=== PATIENT | female | born 1995 | race Caucasian/White ===

== ENCOUNTER 2017-01-17 21:04 | Observation (INO) ==
[2017-01-17] MEDS ORDERED: SODIUM CHLORIDE 0.9% 1,000 ML IV STA ×2 (22:02→22:53)
[2017-01-17] MEDS ORDERED: ONDANSETRON 4 MG/2 ML VIAL IV STA (22:02)
--- NOTE | 2017-01-17 22:18 | Emergency Department Note ---
Zena Ewing Mantricia, am scribing for, and in the presence of, Gaby Knox DO 22:07. IAbilio Debra, DO, personally performed the services described in this documentation, ascribed by Shirley Freitas in my presence, and it is both accurate and complete . Arrival - Arrival Chief Complaint: Upper Respiratory Stated Complaint: nausea/vomitting/chills/cant eat/diarrhea/fatigue ED Nursing Triage Note: patient c/o n/v, diarrhea, chills, weakness, and loss of appetite since 9am this morning. Mode of Arrival: Ambulatory Limitations: No Limitations Source: Patient Time Seen by Provider: 01/17/17 22:01 - History of Present Illness HPI Narrative: Pt is a 21 y/o white female arriving to ED with c/o N/V/D that onset 0900 this morning. Pt states that she is not able to hold anything down and is also experiencing chills. She reports that she cannot even hold down sips of water without vomiting. Her friend has also had similar sxs and they report that they did eat Filipino yesterday. Pt has a PMHx of Type 1 DM and reports that her blood sugar has been fluctuating lately. No other complaints were reported to ED. Onset (ago): hour(s) Consistency: constant Severity: mild Date of Last Menstrual Period: this month Allergies/Adverse Reactions: Allergies Allergy/AdvReac Type Severity Reaction Status Date / Time No Known Allergies Allergy Verified 01/17/17 21:12 Review of System - Review of System 12 point system: reviewed and no additional remarkable complaints except as stated - Review of System Constitutional: Present: chills. Absent: diaphoresis, fever Cardiovascular: Absent: chest pain Gastrointestinal: Present: nausea, vomiting, diarrhea. Absent: abdominal pain Musculoskeletal: Absent: arm pain, back pain, leg pain, neck pain Medical,Surgical,& Family Hx - Medical History Endocrine: History of: Diabetes Mellitus (IDDM) - Social History Smoking Status: Never smoker Frequency of Alcohol Use: None Type of Drug Use: None Exam Vital Signs: Vital Signs Temperature 98.6 F 01/18/17 08:00 Pulse Rate 107 H 01/18/17 08:00 Respiratory Rate 19 01/18/17 08:00 Blood Pressure 134/69 01/18/17 08:00 O2 Sat by Pulse Oximetry 97 01/18/17 08:00 - General General appearance: alert, in no apparent distress, obese - Head Head exam: Present: atraumatic, normocephalic, normal inspection - Eye Eye exam: Present: normal appearance, PERRL, EOMI - ENT ENT exam: Present: normal exam, normal oropharynx, mucous membranes dry, TM's normal bilaterally, normal external ear exam - Neck Neck exam: Present: normal inspection, full ROM, trachea midline. Absent: tenderness - Chest Chest inspection: Present: normal inspection, symmetric chest wall rise. Absent : tenderness - Respiratory Respiratory exam: Present: normal lung sounds bilaterally - Cardiovascular Cardiovascular exam: Present: normal rhythm, tachycardia, normal heart sounds - Abdominal Exam Abdominal exam: Present: soft, normal bowel sounds. Absent: distention, tenderness, guarding, rebound - Extremities Exam Extremities exam: Present: normal inspection, full ROM, normal capillary refill. Absent: tenderness, pedal edema - Back Exam Back exam: Present: normal inspection, full ROM. Absent: tenderness - Neurological Exam Neurological exam: Present: alert, oriented X3, CN II-XII intact, normal gait, reflexes normal - Psychiatric Psychiatric exam: Present: normal affect, normal mood - Skin Skin exam: Present: warm, dry, intact, normal color Course Course Narrative: pt feels somewhat better after 2 liters fluids. and zofran, still somewhat nauseated. and right sided flank pain. will admit to hospitalist and await ct results . Results - Labs CBC & BMP: 01/18/17 04:48 01/18/17 04:48 Lab Results: I have reviewed the patients labs - Diagnostic Findings Procedure: CT Abdomen and Pelvis: report reviewed by me (No ureteral calculus. Questionable very early acute appendicitis versus normal variant. Questionable mesentric adenitis versus normal variant. ) Disposition Clinical Impression: Nausea and vomiting Case discussed with: patient, patient's family Disposition: Still a Patient Condition: Stable Time of Disposition: 00:01
[2017-01-17 22:22] LABS: Basophils # 0.1 10*3/uL (0.0-0.2); Basophils % 0.3 % (0.0-0.8); Eosinophils % 0.1 % (0.00-10.9); Hematocrit 48.4 VOL% (35.7-47.0); Hemoglobin 17.2 GM/DL (12.0-16.0); Immature Granulocytes % 0.5 %; Immature Granulocytes Absolute 0.09 #; Lymphocytes # 0.6 10*3/uL (1.4-4.0); Mean Corpuscular HGB Conc 35.5 GM/DL (32-36); Mean Corpuscular Hemoglobin 31 PG (27-34); Mean Corpuscular Volume 87.8 FL (87-102); Mean Platelet Volume 10.7 FL (9.6-12.0); Monocytes # 0.5 10*3/uL (0.11-0.8); Monocytes % 2.4 % (1.7-12.7); Neutrophils # 18.1 10*3/uL (1.4-7.4); Neutrophils % 93.7 % (38.7-73.9); Platelet Count 396 T/CUMM (130-400); Red Blood Count 5.51 MC/CUMM (3.8-5.5); Red Cell Distribution Width 11.9 % (9.3-17.3); White Blood Count 19.3 T/CUMM (4-12)
[2017-01-17] MEDS ORDERED: ONDANSETRON 4 MG/2 ML VIAL ONE (22:24)
[2017-01-17 22:27] LABS: Apearance,Urine CLEAR (Clear); Bacteria,Urine Occasional /HPF (Few); Bilirubin,Urine Negative (Negative); Blood, Urine Negative (Negative); Glucose,Urine (UA) >=500 mg/dL (Negative); Ketones,Urine 80 mg/dL (Negative); Nitrite,Urine Negative (Negative); Protein,Urine 30 MG/DL; RBC,Urine 1 /HPF (0-4); Squamous Epithelial Cell,Urine Occasional /HPF (0-10); Urine Color Yellow (Yellow); Urine Specific Gravity 1.037 (1.001-1.035); Urine Urobilinogen < 2.0 EU/DL (0.2-1.0); WBC,Urine 1 /HPF (0-6)
[2017-01-17 22:42] LABS: Albumin 3.8 G/DL (3.4-5.0); Bilirubin,Total 0.5 MG/DL (0.2-1.0); Calcium 8.9 MG/DL (8.5-10.1); Osmolality,Calculated 280.1 MOS/KG (273-304); Potassium 4.3 MMOL/L (3.5-5.1); Total Protein 7.8 G/DL (6.4-8.3)
[2017-01-17] MEDS ORDERED: INSULIN REGULAR 100 UNIT/ML IV STA (22:54)
[2017-01-17 23:08] LABS: Band Neutrophils 2 % (0-10); Lymphocytes 1 % (20-55); Segmented Neutrophils 96 % (50-85)
[2017-01-17 23:09] LABS: Platelet Estimate Normal; Total Cells Counted 100
[2017-01-17] MEDS ORDERED: INSULIN REGULAR 100 UNIT/ML ONE (23:12)
[2017-01-18] MEDS ORDERED: ONDANSETRON 4 MG/2 ML VIAL IV PRN (00:13)
[2017-01-18] MEDS ORDERED: ZALEPLON 5 MG CAPSULE PO PRN (00:13)
[2017-01-18] MEDS ORDERED: PROMETHAZINE 25 MG/1 ML VIAL IM PRN (00:13)
[2017-01-18] MEDS ORDERED: ACETAMINOPHEN 325 MG TABLET PO PRN (00:13)
[2017-01-18] MEDS ORDERED: DEXTROSE 50% 25 GM/50 ML VIAL IV PRN (00:16)
[2017-01-18] MEDS ORDERED: GLUCAGON 1 MG VIAL IM PRN (00:16)
--- NOTE | 2017-01-18 00:24 | Hospitalist History & Physical ---
Assessment and Plan - Time spent with patient Time spent with patient: Less than 30 minutes (1) Nausea and vomiting Status: Acute Assessment and plan: Admit to the hospitalist service as observation. Hydrate with normal saline at 125 mL's an hour. Antiemetics as needed for nausea. Will obtain stool sample for WBCs, ova and parasites, and culture. Current Visit: Yes Qualifiers: Vomiting type: unspecified (2) Leukocytosis, unspecified Status: Acute Assessment and plan: Likely reactive due to episode of emesis and elevated glucose. Will obtain stool cultures along with hydrating and recheck labs in a.m. Current Visit: Yes Qualifiers: Leukocytosis type: unspecified Qualified Code(s): D72.829 - Elevated white blood cell count, unspecified (3) Diabetes type I Status: Acute Assessment and plan: Patient reports she has been controlled fairly well with insulin pump. Accu- Cheks before meals and at bedtime allow patient to bolus himself and continue basal insulin from pump. Obtain a hemoglobin A1c in a.m. Current Visit: Yes Qualifiers: Diabetes mellitus complication status: without complication Qualified Code( s): E10.9 - Type 1 diabetes mellitus without complications History of Present Illness Chief complaint: Nausea, vomiting, and diarrhea History of present illness: Ms. Grullon is a 21 year old female with a past medical history of type 1 diabetes who uses an insulin pump presents to the ED today with chief complaint of nausea, vomiting, and diarrhea. She reports the symptoms began approximately 9 AM this morning. Initially thinks she felt the symptoms were related to food poisoning due to her and her significant other having ate [place]ian yesterday he also having the same symptoms. She indicates his symptoms only lasted for approximately 4-5 hours and resolved hers has continued all day. She indicates her initial blood sugar this morning was 97 and throughout the day it has increased to 97. She indicated she did not want to give herself her home insulin dose due to not being able to eat food. She is unable to hold anything down including water with the last episode of diarrhea approximately 4 PM and last episode of emesis prior to presenting to the ED. She denies the possibility of being . No changes in urinary habits. She does report she has a mild lower back pain extending from flank to flank. Initial workup in the ED included a WBC of 19.3, sodium 135, bicarb 18, anion gap 18.3, glucose 275, lipase 71, UA with glucose greater than [address] of the abdomen is pending at this time of interview patient did receive 2 liter normal saline bolus and combination of 6 units of IV regular insulin. Patient will be admitted as observation to the hospital service for further evaluation. Home Medications Medication Instructions Recorded Confirmed Type Insulin Aspart [Novolog] 100 unit SQ DIRECTED 01/17/17 01/17/17 History Allergies Allergy/AdvReac Type Severity Reaction Status Date / Time No Known Allergies Allergy Verified 01/17/17 21:12 Medical,Surgical,& Family Hx - Medical History Endocrine: History of: Diabetes Mellitus (IDDM) - Family History Family History: Reports;: Family Diabetes, Family Hypertension - Social History Smoking Status: Never smoker Have you smoked in the last 12 months: No Frequency of Alcohol Use: Unknown Type of Drug Use: None Functional capacity: independent ambulation - Constitutional Constitutional: Present: chills - Gastrointestinal Gastrointestinal: Present: diarrhea, nausea, vomiting - Musculoskeletal Musculoskeletal: Present: other (Lower back pain from flank to flank) Exam - Constitutional Vitals: Period Temp Pulse Resp BP Sys/East Pulse Ox Last 24 Hr 98.0 F-98.0 F 122-122 20-20 170-170/105-105 98 General appearance: normal weight, no acute distress - Head Head exam: Present: normal inspection - Eye Pupils: Present: ALESHA - ENT ENT exam: Present: normal exam - Neck Neck exam: Present: normal inspection - Respiratory Respiratory exam: Present: clear to auscultation bilaterally - Cardiovascular Cardiovascular exam: Present: regular rate and rhythm - GI/Abdominal GI/Abdominal exam: Present: normal bowel sounds, tenderness - Extremities Exam Extremities exam: Present: normal inspection - Back Exam Back exam: Present: normal inspection. Absent: CVA tenderness (L), CVA tenderness (R) - Neurological Exam Neurological exam: Present: alert, oriented X3 - Psychiatric Psychiatric exam: Present: normal affect, normal mood - Skin Skin exam: Present: normal color Results - Labs CBC & BMP: 01/17/17 22:13 01/17/17 22:13 Lab Results: I have reviewed the past 24 hour labs - Diagnostic Findings Procedure: CT Abdomen and Pelvis: pending
[2017-01-18] MEDS ORDERED: SODIUM CHLORIDE 0.9% 1,000 ML IV SCH (00:30)
[2017-01-18] MEDS ORDERED: NON-FORMULARY MEDICATION SUBCUT SCH (00:30)
[2017-01-18] MEDS: PIPERACILLIN/TAZOBACTAM 3,375 MG in SODIUM CHLORIDE 0.9% 100 ML IV SCH ×2 (02:35→10:55)
[2017-01-18 07:20] LABS: Basophils % 0.3 % (0.0-0.8); Eosinophils # 0.1 10*3/uL (0.0-0.87); Eosinophils % 0.7 % (0.00-10.9); Hematocrit 41.3 VOL% (35.7-47.0); Hemoglobin 14.1 GM/DL (12.0-16.0); Immature Granulocytes % 0.4 %; Immature Granulocytes Absolute 0.04 #; Lymphocytes % 9.6 % (21.3-54.2); Mean Corpuscular HGB Conc 34.1 GM/DL (32-36); Mean Corpuscular Hemoglobin 30 PG (27-34); Mean Platelet Volume 11.6 FL (9.6-12.0); Monocytes # 0.3 10*3/uL (0.11-0.8); Monocytes % 3.2 % (1.7-12.7); Neutrophils # 9.1 10*3/uL (1.4-7.4); Neutrophils % 85.8 % (38.7-73.9); Platelet Count 348 T/CUMM (130-400); Red Blood Count 4.64 MC/CUMM (3.8-5.5); Red Cell Distribution Width 12.2 % (9.3-17.3); White Blood Count 10.6 T/CUMM (4-12)
[2017-01-18 07:39] LABS: Albumin 2.8 G/DL (3.4-5.0); Calcium 7.9 MG/DL (8.5-10.1); Osmolality,Calculated 279.7 MOS/KG (273-304); Potassium 3.9 MMOL/L (3.5-5.1)
[2017-01-18 10:04] VITALS: BP 134/69
--- NOTE | 2017-01-18 10:39 | CT Report ---
CT abdomen pelvis Indication: Abdominal and flank pain Comparison: None available Technique: Axial CT imaging of the abdomen and pelvis is performed without contrast. Findings: Cardiac and lung bases are within normal limits CT abdomen: The liver spleen pancreas and adrenal glands are normal in size and density. No evidence of focal lesion is demonstrated in these solid organs. Kidneys are normal in size and density. No evidence of hydronephrosis or nephrolithiasis is seen. The bowel caliber is normal and no wall thickening or adjacent inflammatory change is seen. No evidence of free fluid or free air is present. A few subcentimeter lymph nodes are present in the right lower quadrant mesentery. The appendix is not appear enlarged and measures up to 9 mm at its proximal and. No adjacent stranding is identified. CT pelvis: The bowel and bladder appear within normal limits. The pelvic organs show no evidence of abnormality Impression: A few subcentimeter lymph nodes in the right lower quadrant mesentery, could indicate mesenteric adenitis. Appendix measures 9 mm at its proximal end and could indicate early appendicitis. This CT exam was performed using one or more the following dose reduction techniques: Automated exposure control, adjustment of the MA and/or KV according to patient size, or use of iterative reconstruction technique. PROCEDURE INTERPRETED AT [facility] DEPARTMENT OF RADIOLOGY Final Report Signed by: Dr. Andrew Cardenas
--- NOTE | 2017-01-18 10:43 | Discharge Summary ---
Hospital Course - Hospital Course Hospital Course: Ms. Grullon is a 21 year old female with a past medical history of type 1 diabetes who uses an insulin pump presented to the ED with chief complaint of nausea, vomiting, and diarrhea. She reported the symptoms began approximately 9 AM this morning. Initially felt the symptoms were related to food poisoning due to her and her significant other having ate [place]ian the previous day, he also had the same symptoms. She indicated his symptoms only lasted for approximately 4-5 hours and resolved. Hers continued all day. She was unable to hold anything down including water with the last episode of diarrhea approximately 4 PM and last episode of emesis prior to presenting to the ED. CT abdomen with enlarged/dilated appendix. She was admitted to the hospitalist service for further evaluation. She was started on zosyn and IV fluids. Surgery was consulted, no need for surgical intervention at this time. She is feeling much better now, no nausea or vomiting. She has now reached maximal benefit of inpatient stay and will be discharged home. - Time spent with patient Time with patient DS: Less than 30 minutes (25) Diagnosis - Discharge Diagnosis (1) Nausea and vomiting Status: Resolved (2) Leukocytosis, unspecified Status: Resolved (3) Diabetes type I Status: Chronic Discharge Plan - Discharge Data Disposition: Disch To Home/Self Care Condition at Discharge: Stable Discharge Diet: diabetic diet Activity: increase activity as tolerated Hygiene: no restrictions Weight Bearing at Discharge: weight bear as tolerated Driving: no restrictions Contact your physician if you experience:: Nausea/Vomiting - Discharge Medications Discontinued Insulin Aspart [Novolog] 100 unit SQ DIRECTED - Follow Up or Referral - Forms/Instructions Exam - Constitutional Vitals: Period Temp Pulse Resp BP Sys/East Pulse Ox Last 24 Hr 97.7 F-98.6 F 95-122 18-20 134-170/66-105 96-98 General appearance: normal weight - Head Head exam: Present: normocephalic, atraumatic - Eye Eye exam: Present: EOMI Pupils: Present: ALESHA - ENT ENT exam: Present: normal exam - Neck Neck exam: Present: normal inspection - Respiratory Respiratory exam: Present: clear to auscultation bilaterally. Absent: rhonchi, wheezes - Cardiovascular Cardiovascular exam: Present: regular rate and rhythm - GI/Abdominal GI/Abdominal exam: Present: normal bowel sounds, soft. Absent: tenderness, rebound - Extremities Exam Extremities exam: Present: normal inspection - Back Exam Back exam: Present: normal inspection - Neurological Exam Neurological exam: Present: alert, oriented X3 - Psychiatric Psychiatric exam: Present: normal affect, normal mood - Skin Skin exam: Present: warm, intact Discharge Results Procedures and tests throughout hospitalization: Pending Orders 01/17/17 23:47 CT abdomen pelvis wo con Stat 01/18/17 02:02 Norovirus, Stool Routine 01/18/17 03:28 Stool Culture Routine Labs on day of discharge: Labs from last 24 hours 01/18/17 01/18/17 01/18/17 07:08 04:48 04:48 WBC RBC Hgb Hct MCV MCH MCHC RDW Plt Count MPV Neut % (Auto) Lymph % (Auto) [place] % (Auto) Eos % (Auto) Baso % (Auto) Neut # (Auto) Lymph # (Auto) [place] # (Auto) Eos # (Auto) Baso # (Auto) Total Counted Immature Gran % Nucleated RBC % Immature Gran # Segmented Neutrophils Band Neutrophils Lymphocytes Monocytes Nucleated RBCs # Platelet Estimate Sodium 138 Potassium 3.9 Chloride 106 Carbon Dioxide 20 L Anion Gap 15.9 H BUN 12 Creatinine 0.50 L GFR Calculation 161 BUN/Creatinine Ratio 24.00 H Glucose 192 H POC Glucose 194 H Hemoglobin A1c 8.2 H Calculated Osmolality 279.7 Calcium 7.9 L Total Bilirubin 1.00 AST 14 ALT 17 Alkaline Phosphatase 65 Total Protein 6.0 L Albumin 2.8 L Globulin 3.2 Albumin/Globulin Ratio 0.8 L Lipase b-Hydroxybutyric mmol/L Urine Color Urine Appearance Urine pH Ur Specific [place] Urine Protein Urine Glucose (UA) Urine Ketones Urine Blood Urine Nitrate Urine Bilirubin Urine Urobilinogen Urine Leukocytes Urine RBC Urine WBC Ur Squamous Epith Cells Urine Bacteria Ur Culture Indicated? Urine Test 01/18/17 01/18/17 01/18/17 04:48 03:26 01:39 WBC 10.6 D RBC 4.64 Hgb 14.1 D Hct 41.3 MCV 89.0 MCH 30 MCHC 34.1 RDW 12.2 Plt Count 348 MPV 11.6 Neut % (Auto) 85.8 H Lymph % (Auto) 9.6 L [place] % (Auto) 3.2 Eos % (Auto) 0.7 Baso % (Auto) 0.3 Neut # (Auto) 9.1 H Lymph # (Auto) 1.0 L [place] # (Auto) 0.3 Eos # (Auto) 0.1 Baso # (Auto) 0.0 Total Counted Immature Gran % 0.4 Nucleated RBC % 0.0 Immature Gran # 0.04 Segmented Neutrophils Band Neutrophils Lymphocytes Monocytes Nucleated RBCs # 0.00 Platelet Estimate Sodium Potassium Chloride Carbon Dioxide Anion Gap BUN Creatinine GFR Calculation BUN/Creatinine Ratio Glucose POC Glucose 147 H 223 H Hemoglobin A1c Calculated Osmolality Calcium Total Bilirubin AST ALT Alkaline Phosphatase Total Protein Albumin Globulin Albumin/Globulin Ratio Lipase b-Hydroxybutyric mmol/L Urine Color Urine Appearance Urine pH Ur Specific [place] Urine Protein Urine Glucose (UA) Urine Ketones Urine Blood Urine Nitrate Urine Bilirubin Urine Urobilinogen Urine Leukocytes Urine RBC Urine WBC Ur Squamous Epith Cells Urine Bacteria Ur Culture Indicated? Urine Test 01/17/17 01/17/17 01/17/17 23:45 23:14 22:13 WBC RBC Hgb Hct MCV MCH MCHC RDW Plt Count MPV Neut % (Auto) Lymph % (Auto) [place] % (Auto) Eos % (Auto) Baso % (Auto) Neut # (Auto) Lymph # (Auto) [place] # (Auto) Eos # (Auto) Baso # (Auto) Total Counted Immature Gran % Nucleated RBC % Immature Gran # Segmented Neutrophils Band Neutrophils Lymphocytes Monocytes Nucleated RBCs # Platelet Estimate Sodium 135 L Potassium 4.3 Chloride 103 Carbon Dioxide 18 L Anion Gap 18.3 H BUN 15 Creatinine 0.70 GFR Calculation 139 BUN/Creatinine Ratio 21.00 H Glucose 275 H POC Glucose 198 H Hemoglobin A1c Calculated Osmolality 280.1 Calcium 8.9 Total Bilirubin 0.50 AST 16 ALT 24 Alkaline Phosphatase 89 Total Protein 7.8 Albumin 3.8 Globulin 4.0 H Albumin/Globulin Ratio 0.9 L Lipase 71.0 L b-Hydroxybutyric mmol/L Urine Color Urine Appearance Urine pH Ur Specific [place] Urine Protein Urine Glucose (UA) Urine Ketones Urine Blood Urine Nitrate Urine Bilirubin Urine Urobilinogen Urine Leukocytes Urine RBC Urine WBC Ur Squamous Epith Cells Urine Bacteria Ur Culture Indicated? Urine Test Negative 01/17/17 01/17/17 22:13 22:13 WBC 19.3 H RBC 5.51 H Hgb 17.2 H Hct 48.4 H MCV 87.8 MCH 31 MCHC 35.5 RDW 11.9 Plt Count 396 MPV 10.7 Neut % (Auto) 93.7 H Lymph % (Auto) 3.0 L [place] % (Auto) 2.4 Eos % (Auto) 0.1 Baso % (Auto) 0.3 Neut # (Auto) 18.1 H Lymph # (Auto) 0.6 L [place] # (Auto) 0.5 Eos # (Auto) 0.0 Baso # (Auto) 0.1 Total Counted 100 Immature Gran % 0.5 Nucleated RBC % 0.0 Immature Gran # 0.09 Segmented Neutrophils 96 H Band Neutrophils 2 Lymphocytes 1 L Monocytes 1 L Nucleated RBCs # 0.00 Platelet Estimate Normal Sodium Potassium Chloride Carbon Dioxide Anion Gap BUN Creatinine GFR Calculation BUN/Creatinine Ratio Glucose POC Glucose Hemoglobin A1c Calculated Osmolality Calcium Total Bilirubin AST ALT Alkaline Phosphatase Total Protein Albumin Globulin Albumin/Globulin Ratio Lipase b-Hydroxybutyric mmol/L 1.6 H Urine Color Yellow Urine Appearance Clear Urine pH 5.0 Ur Specific [place] 1.037 H Urine Protein 30 Urine Glucose (UA) >=500 Urine Ketones 80 Urine Blood Negative Urine Nitrate Negative Urine Bilirubin Negative Urine Urobilinogen < 2.0 H Urine Leukocytes Negative Urine RBC 1 Urine WBC 1 Ur Squamous Epith Cells Occasional Urine Bacteria Occasional Ur Culture Indicated? Not indicated Urine Test DS: Provider Date of admission: 01/18/17 00:13 Primary care physician: . No PCP Attending physician on admission: Luisito Kat MD Consults: 01/18/17 02:02 Consult to Physician [CONS] Routine Comment: possible appendicitis Consulting Provider: Sebastián Madrid Person Notified: Dr Madrid Date Notified: 01/18/17 Time Notified: 09:46 01/18/17 02:05 Consult to [facility], Educator [CONS] Routine Reason for Cap Inspector: Other Consult Comment: screen 01/18/17 09:46 Consult to Physician [CONS] Routine Comment: Consulting Provider: Discharging clinician: Eric Glass MD
--- NOTE | 2017-01-18 11:35 | General Surgery Consult Note ---
Assessment and Plan (1) Nausea and vomiting Status: Resolved Assessment and plan: Impression: Gastroenteritis versus mesenteric adenitis next Plan: Patient's abdomen is completely benign on exam with no tenderness elicited at all. CT scan shows a prominent appendix with no stranding or sign of inflammation or acute appendicitis. The patient is asymptomatic from that standpoint. Her nausea vomiting is resolved and she wants to go home. No plans for any surgical intervention. Please call if needed. Current Visit: Yes Qualifiers: Vomiting type: unspecified History of Present Illness Chief complaint: Nausea and vomiting History of present illness: Ms. Grullon is a 21 year old female was admitted for nausea and vomiting after a meal yesterday. Someone else ate the meal and was also sick but her symptoms lasted longer. She denies ever having any abdominal pain. Allergies Allergy/AdvReac Type Severity Reaction Status Date / Time No Known Allergies Allergy Verified 01/17/17 21:12 Medical,Surgical,& Family Hx - Medical History Medical History: noncontributory Endocrine: History of: Diabetes Mellitus (IDDM) (type 1 diabetic) - Surgical History Surgical History: noncontributory - Family History Family History: noncontributory Family History: Reports;: Family Diabetes, Family Hypertension - Social History Smoking Status: Never smoker Frequency of Alcohol Use: Unknown Type of Drug Use: None 12 point system: reviewed and no additional remarkable complaints except as stated Exam - Constitutional Vitals: Period Temp Pulse Resp BP Sys/East Pulse Ox Last 24 Hr 97.7 F-98.6 F 95-122 18-20 134-170/66-105 96-98 General appearance: no acute distress - Head Head exam: Present: normocephalic - Neck Neck exam: Present: normal inspection - Respiratory Respiratory exam: Present: clear to auscultation bilaterally - Cardiovascular Cardiovascular exam: Present: RRR - GI/Abdominal GI/Abdominal exam: Present: soft (Nontender nondistended) - Back Exam Back exam: Present: normal inspection - Neurological Exam Neurological exam: Present: alert, oriented X3 Speech: Present: normal - Skin Skin exam: Present: normal color Results - Labs CBC & BMP: 01/18/17 04:48 01/18/17 04:48 Lab Results: I have reviewed the past 24 hour labs
== END 2017-01-18 11:34 | disposition home or self-care (01) ==
LOC: N.ED 21:04 → N.EDINP 21:04 → SUATTDRO 01-18 00:13 → N.EDINP 01-18 01:37 → N.5E 01-18 02:01
PROVIDERS: ADMIT Family Medicine; ATTEND Internal Medicine